=== PATIENT | male | born 1975 | race Asian ===

== ENCOUNTER 2017-09-11 02:57 | Emergency (ER) | payer OTHER ==
[2017-09-11] MEDS: ONDANSETRON (ODT) 4 MG TAB ODT (03:16)
[2017-09-11] MEDS: KETOROLAC 30 MG INJ IM (03:16)
[2017-09-11] MEDS: HYDROCODONE/APAP (10/325) TAB PO (03:17)
[2017-09-11] MEDS: DIAZEPAM 5 MG TAB PO (03:17)
[2017-09-11] MEDS: HYDROmorphONE 1 MG/ML SYG IM (04:29)
== END 2017-09-11 05:20 | disposition home or self-care (01) ==
LOC: E/R 02:57
DX: M54.16 Radiculopathy, lumbar region (principal); R40.2142 Coma scale, eyes open, spontaneous, at arrival to emergency department; R40.2252 Coma scale, best verbal response, oriented, at arrival to emergency department; R40.2362 Coma scale, best motor response, obeys commands, at arrival to emergency department
CPT/HCPCS: 96372; 99284-25; J1170

== ENCOUNTER 2017-10-06 04:19 | Emergency (ER) | payer OTHER ==
[2017-10-06 06:43] LABS: ADD UMIC YES; UR ASCORBIC ACID NEGATIVE (NEGATIVE); UR BACTERIA FEW /HPF (NONE SEEN); UR BILIRUBIN (Dip) NEGATIVE (NEGATIVE); UR BLOOD (Dip) 1+ mg/dL (NEGATIVE); UR CLARITY CLEAR (CLEAR); UR COLOR YELLOW (YELLOW); UR GLUCOSE (Dip) NEGATIVE (NEGATIVE); UR KETONES (Dip) NEGATIVE (NEGATIVE); UR LEUKOCYTE ESTERASE (Dip) 2+ Leu/ul (NEGATIVE); UR NITRITE (Dip) NEGATIVE (NEGATIVE); UR RBC 3 /HPF (0-5); UR SPECIFIC GRAVITY (Dip) 1.008 (1.003-1.030); UR SQUAMOUS EPITHELIAL CELL FEW /HPF (FEW); UR TOTAL PROTEIN (Dip) NEGATIVE (NEGATIVE); UR UROBILINOGEN (Dip) NEGATIVE (NEGATIVE); UR WBC 66 /HPF (0-5)
== END 2017-10-06 09:02 | disposition home or self-care (01) ==
LOC: E/R 04:19
DX: R33.9 Retention of urine, unspecified (principal); N39.0 Urinary tract infection, site not specified
CPT/HCPCS: 51702; 81001; 87086; 99283-25